=== PATIENT | male | born 1950 | race Caucasian/White ===

== ENCOUNTER → 2018-02-02 | Outpatient (CLI) | payer MEDICARE ==
[~2018-02-02] MED LIST: AMLO5TAB4 PO; ASCO10004 PO; ASCO100T5 PO; BRIM5DRO2 EACHEYE; BUPIVICAINE PF; CETI10TA32 PO; CLON0.1T12 PO; CLON0.2T PO; CLONIDINE PF; CLOP75TA PO; CLOP75TA52 PO; DABI150C PO; DOCU100T6 PO; DULO30CA2 PO; DULO60CA55 PO; ENOX120S5 SQ; FLUT16SP2 INH; FLUTICASONE SPRAY NS; FURO-93 PO; FURO20TA3 PO; GABA600T2 PO; GLUC15006 PO; GLUCOSAMINE SULFATE PO; KETAMINE PF; LACT10SO5 PO; LEVO750T26 PO; LOSA50TA6 PO; LOSARTAN PO; METO-264 PO; METO-93 PO; METO25TA91 PO; METO50TA82 PO; MORPHINE PF; MULT-224 PO; MULT-298 PO; Morphine; NITR0.4T SL; OXYC-302 PO; OXYC5CAP2 PO; POTA10TA11 PO; POTA10TA5 PO; REGADENOSON 0.4 MG/5 ML SYRINGE ONE; SIMV40TA3 PO; SPIR25TA3 PO; TICA90TA PO; TRAZ100T15 PO; WARF3TAB52 PO-COUM; [UNRECOGNIZED DRUG - OTHER] INH; [UNRECOGNIZED DRUG - OTHER] TP
== END ==
LOC: CFH 12:13
PROVIDERS: ATTEND Internal Medicine Cardiovascular Disease
DX: I48.0 Paroxysmal atrial fibrillation (principal); I10 Essential (primary) hypertension
CPT/HCPCS: 78452; 93017; A9502; J2785